=== PATIENT | female | born 1990 | race Caucasian/White ===

== ENCOUNTER 2019-09-04 09:08 | Outpatient (CLI) | payer OTHER ==
[2019-09-04 09:52] LABS: BASOPHILS % (AUTO) 0.6 %; EOSINOPHILS # (AUTO) 0.1 10^3/uL (0.0-0.7); EOSINOPHILS % (AUTO) 2.1 %; HGB - HEMOGLOBIN 14.5 g/dL (12.0-16.0); LYMPHOCYTES # (AUTO) 2.3 10^3/uL (1.5-3.5); LYMPHOCYTES % (AUTO) 48.8 %; MEAN CORPUSCULAR HGB CONC 34.1 g/dL (32.0-36.0); MONOCYTES # (AUTO) 0.4 10^3/uL (0.0-1.0); MONOCYTES % (AUTO) 7.7 %; NEUTROPHILS # (AUTO) 1.9 10^3/uL (1.5-6.6); NEUTROPHILS % (AUTO) 40.4 %; PLT - PLATELET COUNT 227 10^3/uL (130-450); RED BLOOD COUNT 4.67 10^6/uL (4.20-5.40); RED CELL DISTRIBUTION WIDTH 12.5 % (12.0-15.0); WHITE BLOOD COUNT 4.8 x10^3/uL (4.8-10.8)
== END 2019-09-04 09:09 | disposition home or self-care (01) ==
LOC: LAB 09:08
PROVIDERS: ATTEND Obstetrics & Gynecology
DX: Z01.812 Encounter for preprocedural laboratory examination (principal); N87.9 Dysplasia of cervix uteri, unspecified
CPT/HCPCS: 36415; 85025; 86850; 86900; 86901

== ENCOUNTER 2019-09-06 13:03 | Day surgery (SDC) | payer OTHER ==
[~2019-09-06 13:03] MED LIST: LACTATED RINGERS 1,000 ML IV ONE
[2019-09-06] MEDS ORDERED: LIDOCAINE-MPF 2% 5 ML VIAL IM ONE (13:04)
[2019-09-06] MEDS ORDERED: PROPOFOL 200 MG/20 ML VIAL IVP ONE (13:04)
[2019-09-06] MEDS ORDERED: MIDAZOLAM 2 MG/2 ML VIAL IVP ONE (13:04)
[2019-09-06] MEDS ORDERED: fentaNYL 100 MCG/2 ML VIAL IVP ONE (13:04)
[2019-09-06 13:14] LABS: HCG UR QUAL NEGATIVE
--- NOTE | 2019-09-06 14:45 | ANESTHESIA ---
Pre-Anesthesia VS, & Labs - Diagnosis GLENNA II - Procedure leep under anesthesia Vital Signs: Temp Pulse Resp BP Pulse Ox 36.8 C 86 12 121/85 H 100 09/06/19 13:05 09/06/19 13:05 09/06/19 13:05 09/06/19 13:05 09/06/19 13:05 Height 5 ft 9 in Weight (kg) 57.61 kg - NPO >8 hours - Is Patient ?: No Home Medications and Allergies Home Medications: Ambulatory Orders Levothyroxine Sodium [Synthroid] 175 mcg PO 08/31/19 Levothyroxine Sodium [Synthroid] 175 mcg PO 08/31/19 Allergies/Adverse Reactions: Allergies Allergy/AdvReac Type Severity Reaction Status Date / Time cefprozil Allergy Edema Verified 08/31/19 10:29 Anes History & Medical History - Anesthetic History Anesthesia Complications: reports: Post-Operative Nausea/Vomiting - Medical History Cardiovascular: reports: None Gastrointestinal: reports: None Urinary: reports: Other Musculoskeletal: reports: None Endocrine/Autoimmune: reports: None Skin: reports: None Smoking Status: Never smoker Psychosocial: reports: No issues indicated - Surgical History Eyes Ears Nose Throat (EENT): Tonsil/Adenoidectomy Exam General: Alert, Oriented x3 Dental: WNL Mouth Opening: Greater than 4 Fingerbreadths Mallampati classification: I Thyromental Distance: greater than 6 cm Respiratory: Lungs clear Cardiovascular: Regular rate Plan Anesthesia Type: General Consent for Procedure(s) Verified and Reviewed: Yes Code Status: Attempt Resuscitation ASA classification: 1-Healthy patient Is this case an emergency?: No
[2019-09-06] MEDS ORDERED: SCOPOLAMINE PATCH TOP SCH (17:00)
[2019-09-06] MEDS ORDERED: LIDOCAINE 1%-EPI 1:100000 20 ML MDV ONE (17:32)
[2019-09-06] MEDS ORDERED: LIDOCAINE 1%-EPI 1:100000 30 ML MDV SUBQ ONE (18:04)
[2019-09-06] MEDS ORDERED: LACTATED RINGERS 1,000 ML IV ONE (18:17)
[2019-09-06] MEDS ORDERED: oxyCODONE 5 MG TABLET PO PRN (18:20)
[2019-09-06] MEDS ORDERED: ONDANSETRON 4 MG/2 ML VIAL IVP PRN (18:20)
--- NOTE | 2019-09-06 18:27 | OPERATIVE REPORT ---
Operative Report - General Procedure Date: 09/06/19 Planned Procedure: looped electrode excision procedure Pre-Op Diagnosis: cervical intraepithelial neoplasia 2 Procedure Performed: LEEP Post Op Diagnosis: same as above - Procedure Note Primary Surgeon: Greta Little Anesthesia Provider: Jayshree Junior Anesthesia Technique: MAC Pathology: 1. LEEP 2. ECC IV Fluids (mL): 700 Estimated Blood Loss (mL): 5 Urine Output (mL): 0 Indications: GLENNA II, unable to tolerate LEEP in clinic Findings: Small nulliparous cervix, small transformation zone, excised in single vertical pass. ECC collected with curette. Complications: None - Other Other Information/Narrative: After informed consent was assured, patient was taken to the OR where anesthesia was induced. A surgical timeout was performed. The patient was positioned in high dorsal lithotomy using yellow fin stirrups. A grounding pad was placed on the patient's right thigh. A grounded speculum was placed in the vagina with attached smoke evacuation tubing. The cervix was visualized; it was small with no apparent lesions and a well defined transformation zone. 10 mL of lidocaine 1% plain were used to place a paracervical block. A looped electrode was used to excise the transformation zone in a single vertical pass at a power of 60. The specimen was retrieved with ring forceps and passed off in formalin. A currette was used to collect an endocervical curettage; this was also passed off in formalin. A ball electrode was used to apply cautery to the LEEP bed. Monsel's solution was applied to the LEEP bed. Good hemostasis was noted. The speculum was removed from the vagina. The patient tolerated the procedure well. All counts were correct. She was awoken and returned to the PACU in stable condition.
[2019-09-06 18:46] VITALS: BP 126/79
== END 2019-09-06 13:04 | disposition home or self-care (01) ==
LOC: SDS 13:03
PROVIDERS: ATTEND Obstetrics & Gynecology
PROC: 0UBC7ZZ Excision of Cervix, Via Natural or Artificial Opening (ICD-10-PCS; principal; 2019-09-06 14:00)
DX: N87.1 Moderate cervical dysplasia (principal)
CPT/HCPCS: 81025

== ENCOUNTER 2022-01-30 11:10 | Emergency (ER) | payer OTHER ==
[2022-01-30] MEDS ORDERED: PROPRANOLOL 10 MG TABLET PO STA (11:38)
--- NOTE | 2022-01-30 11:38 | ED Physician Documentation ---
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 Its missed heartbeat sensation with left-sided chest tightness. No shortness of breath. She never had this before. No caffeine or other stimulant use. PD PAST MEDICAL HISTORY - Past Medical History Cardiovascular: None Respiratory: None Neuro: None Endocrine/Autoimmune: None GI: None CRATE MAKER: None : Other HEENT: None Psych: None Musculoskeletal: None Derm: None - Past Surgical History Past Surgical History: Yes /CRATE MAKER: LEEP (Cervical surgery) HEENT: Tonsil/Adenoidectomy - Present Medications Home Medications: Ambulatory Orders Medication Instructions Recorded Confirmed Propranolol [Inderal] 10 mg PO TID PRN #120 tablet 01/30/22 Thyroid,Pork [Cameron Thyroid] 105 mg PO DAILY 01/30/22 01/30/22 - Allergies Allergies/Adverse Reactions: Allergies Allergy/AdvReac Type Severity Reaction Status Date / Time cefprozil Allergy Edema Verified 09/14/19 23:40 - Social History Does the pt smoke?: No Smoking Status: Never smoker Does the pt drink ETOH?: No Does the pt have substance abuse?: No - Immunizations Immunizations are current?: No - POLST Patient has POLST: No PD ED PE NORMAL - Vitals Vital signs reviewed: Yes - General General: Alert and oriented X 3, No acute distress - HEENT HEENT: PERRL, EOMI - Neck Neck: Supple, no meningeal sign, No bony TTP - Cardiac Cardiac: No murmur, Other (Occasional extrasystoles) - Respiratory Respiratory: No respiratory distress, Clear bilaterally - Abdomen Abdomen: Normal bowel sounds, Soft, Non tender - Back Back: No CVA TTP, No spinal TTP - Derm Derm: Normal color, Warm and dry - Extremities Extremities: No edema, No calf tenderness / cord - Neuro Neuro: Alert and oriented X 3, Normal speech Results - Vitals Vitals: Vital Signs - 24 hr 01/30/22 01/30/22 11:15 12:55 Temperature 37.0 C Heart Rate 86 85 Respiratory 18 18 Rate Blood Pressure 138/95 H 125/78 O2 Saturation 99 99 Oxygen O2 Source Room air - EKG (time done) 1117 Rate: Rate (enter#) (82) Rhythm: NSR, LAE [place]: Normal Intervals: Normal NM Ischemia: Non specific changes. No: ST elevation c/w ischemia, ST depression - Labs Labs: Laboratory Tests 01/30/22 01/30/22 01/30/22 11:35 11:35 11:35 WBC 6.4 RBC 4.67 Hgb 14.3 Hct 41.5 MCV 88.9 MCH 30.6 MCHC 34.5 RDW 11.9 L Plt Count 223 MPV 10.7 Neut # (Auto) 2.7 Lymph # (Auto) 2.8 [place] # (Auto) 0.7 Eos # (Auto) 0.1 Baso # (Auto) 0.0 Absolute Nucleated RBC 0.00 Nucleated RBC % 0.0 Sodium 139 Potassium 4.1 Chloride 106 Carbon Dioxide 25 Anion Gap 8.0 BUN 13 Creatinine 0.7 Estimated GFR (MDRD) 98 Glucose 96 Calcium 9.5 Total Bilirubin 1.0 AST 23 ALT 15 Alkaline Phosphatase 53 Troponin I High Sens < 2.3 L Total Protein 7.4 Albumin 4.5 Globulin 2.9 Albumin/Globulin Ratio 1.6 Lipase 47 TSH Free T4 Free T3 pg/mL 01/30/22 11:35 WBC RBC Hgb Hct MCV MCH MCHC RDW Plt Count MPV Neut # (Auto) Lymph # (Auto) [place] # (Auto) Eos # (Auto) Baso # (Auto) Absolute Nucleated RBC Nucleated RBC % Sodium Potassium Chloride Carbon Dioxide Anion Gap BUN Creatinine Estimated GFR (MDRD) Glucose Calcium Total Bilirubin AST ALT Alkaline Phosphatase Troponin I High Sens Total Protein Albumin Globulin Albumin/Globulin Ratio Lipase TSH 2.29 Free T4 0.69 Free T3 pg/mL 4.50 H - Rads (name of study) 1v cxr Radiology: EMP read contemporaneously (nad) PD MEDICAL DECISION MAKING - ED course ED course: Twelve-lead EKG is normal sinus rhythm but on the monitor she is having moderately frequent PACs which correspond to her symptoms. She would like treatment for this and we will trial some propranolol pending lab work. Given intermittent symptoms and correlation with PACs I doubt a more severe or worrisome diagnoses such as PE or ACS. After administration of oral propranolol she did feel less ectopy and less severe ectopy. Departure - Departure Disposition: Home, Self Care Clinical Impression: PAC (premature atrial contraction) Condition: Good Record reviewed to determine appropriate education?: Yes Instructions: Premature Ventricular Contract About, Premature Ventricular Contract Tx Prescriptions: Propranolol [Inderal] 10 mg PO TID PRN #120 tablet PRN Reason: Palpitations Comments: You are seen today for symptomatic premature atrial contractions. Work-up was negative, we did check your thyroid function. Your free T3 was elevated at 4.5, normal would be less than 3.9. That said your free T4 was normal at 0.69 and your TSH is normal at 2.29. Reasonable to decrease your Cameron Thyroid by 15 mcg pending follow-up with your primary care physician. I do not have specific discharge instructions for premature atrial contractions, I am craning out our discharge instructions for premature ventricular contractions which are for the most part similar. Call your doctor to arrange a follow-up appointment, make the next available appointment. In the interim, return anytime if worse or if new symptoms develop. Discharge Date/Time: 01/30/22 12:58
--- NOTE | 2022-01-30 11:41 | XRAY Report ---
PROCEDURE: Chest 1 View X-Ray INDICATIONS: Chest pain TECHNIQUE: One view of the chest was acquired. COMPARISON: None. FINDINGS: Surgical changes and devices: None. Lungs and pleura: No pleural effusions or pneumothorax. Lungs are clear. Mediastinum: Mediastinal contours appear normal. Heart size is normal. Bones and chest wall: No suspicious bony lesions. Overlying soft tissues appear unremarkable. IMPRESSION: No acute cardiopulmonary abnormality. Reviewed by: hZou Malhotra MD on 01/30/2022 10:40 AM OLIVIA Approved by: Zhou Malhotra MD on 01/30/2022 10:40 AM OLIVIA Station ID: [id number]
[2022-01-30 11:42] LABS: BASOPHILS % (AUTO) 0.6 %; EOSINOPHILS # (AUTO) 0.1 10^3/uL (0.0-0.7); EOSINOPHILS % (AUTO) 1.3 %; HCT - HEMATOCRIT 41.5 % (37.0-47.0); HGB - HEMOGLOBIN 14.3 g/dL (12.0-16.0); LYMPHOCYTES # (AUTO) 2.8 10^3/uL (1.5-3.5); LYMPHOCYTES % (AUTO) 44.7 %; MEAN CORPUSCULAR HEMOGLOBIN 30.6 pg (27.0-31.0); MEAN CORPUSCULAR HGB CONC 34.5 g/dL (32.0-36.0); MEAN CORPUSCULAR VOLUME 88.9 fL (81.0-99.0); MEAN PLATELET VOLUME 10.7 fL (7.9-10.8); MONOCYTES # (AUTO) 0.7 10^3/uL (0.0-1.0); MONOCYTES % (AUTO) 10.4 %; NEUTROPHILS # (AUTO) 2.7 10^3/uL (1.5-6.6); NEUTROPHILS % (AUTO) 42.8 %; PLT - PLATELET COUNT 223 10^3/uL (130-450); RED BLOOD COUNT 4.67 10^6/uL (4.20-5.40); RED CELL DISTRIBUTION WIDTH 11.9 % (12.0-15.0); WHITE BLOOD COUNT 6.4 x10^3/uL (4.8-10.8)
[2022-01-30 11:58] LABS: ALBUMIN 4.5 g/dL (3.2-5.5); ALBUMIN/GLOBULIN RATIO 1.6 (1.0-2.2); CALCIUM 9.5 mg/dL (8.5-10.3); CREATININE 0.7 mg/dL (0.4-1.0); POTASSIUM 4.1 mmol/L (3.5-5.0); TOTAL PROTEIN 7.4 g/dL (6.7-8.2)
[2022-01-30 12:13] LABS: THYROID STIMULATING HORMONE 2.29 uIU/mL (0.34-5.60)
[2022-01-30 12:15] LABS: FREE T3 4.5 pg/mL (2.5-3.9); FREE T4 (FREE THYROXINE) 0.69 ng/dL (0.58-1.64)
[2022-01-30 12:58] VITALS: BP 125/78
== END 2022-01-30 12:58 | disposition home or self-care (01) ==
LOC: ED 11:10
DX: I49.1 Atrial premature depolarization (principal); R94.6 Abnormal results of thyroid function studies
CPT/HCPCS: 36415; 71045; 80053; 83690; 84439; 84443; 84481; 84484; 85025; 93005; 99283; 99284; A9270